=== PATIENT | female | born 1940 | race Caucasian/White ===

== ENCOUNTER 2018-12-29 21:30 | Emergency (ER) | payer MEDICARE, MEDICAID ==
[~2018-12-29] VITALS: Ht 157.5 cm; Wt 68.2 kg
[2018-12-29 21:34] VITALS: Ht 157.5 cm; Wt 68.2 kg
[2018-12-29] MEDS ORDERED: ONDANSETRON (ODT) 4 MG TAB ODT STA (22:54)
[2018-12-29] MEDS ORDERED: HYDROCODONE/APAP (5/325) TAB PO ONE (23:00)
[2018-12-30 01:25] VITALS: BP 141/67; PULSE 78; RESP 16
[2018-12-30] MEDS ORDERED: ACETAMINOPHEN 500 MG TAB PO STA (01:25)
[2018-12-30] MEDS ORDERED: NAPR-985 PO (01:26)
--- NOTE | 2018-12-30 01:27 | ERD ---
ER Documentation Chief Complaint Chief Complaint RIGHT SHOULDER INJ S/P FALL FROM STEPS; NO DEFOMITY; ABLE TO MOVE ARM HPI Is an 78-year-old female right shoulder injury status post fall from steps. She thinks she might of hit her head. No loss conscious. No fevers or chills. No other current complaints. No focal neurologic complaints. No other current issues. ROS All systems reviewed and are negative except as per history of present illness. Medications Home Meds Active Scripts Naproxen* (Naprosyn*) 500 Mg Tablet, 500 MG PO BID PRN for PAIN AND/OR INFLAMMATION, #30 TAB Prov:WILVER MADDOX 12/30/18 Allergies Allergies: Coded Allergies: Penicillins (Verified Allergy, Unknown, 12/29/18) PMhx/Soc History of Surgery: Yes (tumor removal from chest) Anesthesia Reaction: No Hx Neurological Disorder: No Hx Respiratory Disorders: No Hx Cardiac Disorders: No Hx Psychiatric Problems: No Hx Miscellaneous Medical Probl: Yes (hypothyroid) Hx Alcohol Use: No Hx Substance Use: No Hx Tobacco Use: No Smoking Status: Never smoker Physical Exam Vitals Vital Signs Date Temp Pulse Resp B/P (MAP) Pulse Ox O2 O2 Flow FiO2 Time Delivery Rate 12/30/18 78 16 141/67 95 Room Air 01:25 (91) 12/29/18 84 16 176/85 98 Room Air 23:34 (115) 12/29/18 97.3 92 19 142/90 98 21:34 (107) Physical Exam Const: No acute distress Head: Atraumatic Eyes: Normal Conjunctiva ENT: Normal External Ears, Nose and Mouth. Neck: Full range of motion. No meningismus. Resp: Clear to auscultation bilaterally Cardio: Regular rate and rhythm, no murmurs Abd: Soft, non tender, non distended. Normal bowel sounds Skin: No petechiae or rashes Back: No midline or flank tenderness Ext: No cyanosis, or edema Neur: Awake and alert Psych: Normal Mood and Affect Results 24 hrs Current Medications Medications Dose Sig/Boogie Start Time Status Last (Trade) Ordered Route PRN Stop Time Admin Dose Reason Admin 1 tab ONCE ONCE 12/29/18 DC 12/29/18 Acetaminophen PO 23:00 23:11 / 12/29/18 23:01 Hydrocodone Bitart ([place] (5/325)) Ondansetron 4 mg ONCE STAT 12/29/18 DC 12/29/18 HCl (Zofran ODT 22:54 23:11 Odt) 12/29/18 22:56 500 mg ONCE STAT 12/30/18 Acetaminophen PO 01:25 (Tylenol 12/30/18 01:26 Tab) Procedures/MDM X-ray Shoulder 3V Interpreted by me: Bones: [No fracture] Joints: [No dislocation] Foreign body: [None] Medical decision making: Very pleasant patient comes in essentially for "closed head injury and right shoulder contusion. At this point clinically stable for outpatient management will be discharged home. Departure Diagnosis: Primary Impression: Fall Encounter type: initial encounter Qualified Codes: W19.XXXA - Unspecified fall, initial encounter Condition: Stable Patient Instructions: Fall, Mechanical WILVER MADDOX Dec 30, 2018 01:27
== END 2018-12-30 01:32 | disposition home or self-care (01) ==
LOC: E/R 21:30
DX: S40.011A Contusion of right shoulder, initial encounter (principal); E03.9 Hypothyroidism, unspecified; S09.90XA Unspecified injury of head, initial encounter; W10.9XXA Fall (on) (from) unspecified stairs and steps, initial encounter; Y92.9 Unspecified place or not applicable
CPT/HCPCS: 70450